=== PATIENT | female | born 1995 | race Caucasian/White ===

== ENCOUNTER 2017-08-17 18:13 | Emergency (ER) | payer BC ==
[~2017-08-17] VITALS: Ht 154.9 cm; Wt 45.4 kg
== END 2017-08-18 00:19 | disposition home or self-care (01) ==
LOC: ED 18:13
DX: F15.129 Other stimulant abuse with intoxication, unspecified (principal)
CPT/HCPCS: 80053; 80176; 81001; 84443; 84703; 85025; 87077; 87088; 87186; 99283; G0480

== ENCOUNTER 2017-08-18 16:39 | Emergency (ER) | payer BC ==
[~2017-08-18] VITALS: Ht 152.4 cm; Wt 45.4 kg
--- OUTSIDE RECORDS SUMMARY | ~2017-08-18 | XMS | Clinical Summary ---
Demographics + + + | Address | [address] | | | [place] [address] | + + + | Home Phone | | + + + | Preferred Language | Unknown | + + + | Marital Status | Single | + + + | Zoroastrianism Affiliation | Unknown | + + + | Race | Unknown | + + + | Ethnic Group | Unknown | + + + Author + + + | Author | [facility] | + + + | Organization | [facility] | + + + | Address | Unknown | + + + | Phone | Unavailable | + + + Support + + + + + | Name | Relationship | Address | Phone | + + + + + | Tami Naqvi | ECON | [address] | | | | | [place] | | | | | [address] | | + + + + + | Message,Detailed | ECON | [address] | | | | | [place] | | | | | [address] | | + + + + + Care Team Providers + +------+ + | Care Contact Officer Name | Role | Phone | + +------+ + | Isabelle Melchor | PP | | + +------+ + Allergies + + + + + + | Active Allergy | Reactions | Severity | Noted | Comments | | | | | Date | | + + + + + + | Anesthetics, Tierney | Shortness of Breath | High | 12/03/19 | | | | | | 13 | | + + + + + + Current Medications + + +--------+---------+------+------+-------+ | Prescription | Sig. | Disp. | Refills | Star | End | Statu | | | | | | t | Date | s | | | | | | Date | | | + + +--------+---------+------+------+-------+ | amoxicillin | Take 875 mg by mouth | | | 11/05 | | Activ | | (AMOXIL) 875 MG | 2 (two) times | | | 07/25 | | e | | tablet | daily. | | | 17 | | | + + +--------+---------+------+------+-------+ | ondansetron | Take 1 tablet by | | | 11/05 | | Activ | | (ZOFRAN) 4 MG tablet | mouth every 4 (four) | | | 3 | | e | | | hours as needed. | | | 17 | | | + + +--------+---------+------+------+-------+ | | Take 1 tablet by | 20 | 0 | 07/1 | | Activ | | amoxicillin-clavulan | mouth 2 (two) times | tablet | | 4/20 | | e | | ate (AUGMENTIN) | daily. | | | 17 | | | | 875-125 MG per | | | | | | | | tablet | | | | | | | + + +--------+---------+------+------+-------+ Active Problems No known active problems Family History + + +------+ + | Medical History | Relation | Name | Comments | + + +------+ + | Diabetes type II | Father | | | + + +------+ + | Heart disease | Father | | | + + +------+ + | Hypertension | Father | | | + + +------+ + | Cancer | Maternal | | ovarian cancer | | | Grandmoth | | | | | er | | | + + +------+ + | Diabetes type II | Paternal | | | | | Grandfath | | | | | er | | | + + +------+ + | Heart disease | Paternal | | | | | Grandfath | | | | | er | | | + + +------+ + | Diabetes type II | Paternal | | | | | Grandmoth | | | | | er | | | + + +------+ + + +------+--------+ + | Relation | Name | Status | Comments | + +------+--------+ + | Father | | Alive | | + +------+--------+ + | Maternal Grandfather | | Alive | | + +------+--------+ + | Maternal Grandmother | | Alive | | + +------+--------+ + | Mother | | Alive | | + +------+--------+ + | Paternal Grandfather | | Alive | | + +------+--------+ + | Paternal Grandmother | | Alive | | + +------+--------+ + Social History + +-------+ +--------+------+ | Tobacco Use | Types | Packs/Day | Years | Date | | | | | Used | | + +-------+ +--------+------+ | Current Every Day | | | | | | Smoker | | | | | + +-------+ +--------+------+ + +---+---+---+ | Smokeless Tobacco: | | | | | Never Used | | | | + +---+---+---+ + + | Tobacco Cessation: Counseling Given: Yes | | Comments: haven't smoked in four days | + + + + +---------+ + | Alcohol Use | Drinks/We | oz/Week | Comments | | | ek | | | + + +---------+ + | Yes | | | | + + +---------+ + + + + | Sex Assigned at | Date Recorded | | | | + + + | Not on file | | + + + Last Filed Vital Signs + + + + | Vital Sign | Reading | Time Taken | + + + + | Blood Pressure | 107/61 | 11/18/2016 7:20 PM PDT | + + + + | Pulse | 75 | 11/18/2016 7:20 PM PDT | + + + + | Temperature | 37 C (98.6 F) | 09/22/2016 7:59 PM PDT | + + + + | Respiratory Rate | 18 | 11/18/2016 7:20 PM PDT | + + + + | Oxygen Saturation | 100% | 11/18/2016 7:20 PM PDT | + + + + | Inhaled Oxygen | - | - | | Concentration | | | + + + + | Weight | 52 kg (114 lb 10.2 | 11/18/2016 4:41 PM PDT | | | oz) | | + + + + | Height | 165.1 cm (5' 5") | 11/18/2016 4:41 PM PDT | + + + + | Body Mass Index | 19.08 | 11/18/2016 4:41 PM PDT | + + + + Plan of Treatment + + + + + | Health Maintenance | Due Date | Last Done | Comments | + + + + + | Vaccine: HPV (1 of 3 | | | | | - Female 3 Dose | 5 | | | | Series) | | | | + + + + + | Vaccine: | | | | | Dtap/Tdap/Td (1 - | 3 | | | | Tdap) | | | | + + + + + | Vaccine: | | | | | Pneumococcal 19-64 | 3 | | | | (PPSV23 only) Medium | | | | | Risk (1 of 1 - | | | | | PPSV23) | | | | + + + + + | Cervical Cancer | | | | | Screening (Pap) | 5 | | | + + + + + | Vaccine: Influenza | | | | | (Season Ended) | 8 | | | + + + + + Results Not on filefrom Last 3 Months Insurance + +--------+ +------+-------+---------+ | Payer | Benefi | Subscriber | Type | Phone | Address | | | t Plan | ID | | | | | | / | | | | | | | Group | | | | | + +--------+ +------+-------+---------+ | [employer] - [place] | L&I - | [phone] | | | | | | [place] | | | | | | | [place] | | | | | + +--------+ +------+-------+---------+ | [employer]ET[employer] | [place]ETNA | [phone] | | | | | | - [place] | | | | | | | [place] | | | | | | | [place] | | | | | + +--------+ +------+-------+---------+ + +--------+ +--------+ + + | Guarantor Name | Accoun | Relation to | Date | Phone | Billing Address | | | t Type | Patient | of | | | | | | | | | | + +--------+ +--------+ + + | BRITTANY NAQVI | Person | Self [birth year] | Home: | [address] | | | al/Fam | | 1994 | - | [place] | | | [place] | | | [address] | [address] | + +--------+ +--------+ + + | BRITTANY NAQVI | Worker | Self | [birth year] | Home: | [address] | | | s Comp | | 1994 | - | [place] | | | | | | [address] | [phone] | + +--------+ +--------+ + +
--- OUTSIDE RECORDS SUMMARY | ~2017-08-18 | XMS | Clinical Summary ---
Demographics + + + | Address | [address] | | | [place] [address] | + + + | Home Phone | | + + + | Preferred Language | Unknown | + + + | Marital Status | Single | + + + | Muslim Affiliation | Unknown | + + + | Race | Unknown | + + + | Ethnic Group | Unknown | + + + Author + + + | Author | [facility] | + + + | Organization | [facility] | + + + | Address | Unknown | + + + | Phone | Unavailable | + + + Support + + + + + | Name | Relationship | Address | Phone | + + + + + | Tami Naqvi | ECON | [address] | | | | | [place] | | | | | [address] | | + + + + + | Message,Detailed | ECON | [address] | | | | | [place] | | | | | [address] | | + + + + + Care Team Providers + +------+ + | Care Refueler Name | Role | Phone | + [...] | [place] | | | [address] | [phone] | + +--------+ +--------+ + + | BRITTANY NAQVI | Worker | Self | [birth year] | Home: | [address] | | | s Comp | | 1994 | - | [place] | | | | | | [address] | [phone] | + +--------+ +--------+ + +
== END 2017-08-18 18:20 | disposition home or self-care (01) ==
LOC: ED 16:39
DX: T18.2XXA Foreign body in stomach, initial encounter (principal); Z87.891 Personal history of nicotine dependence; Z88.4 Allergy status to anesthetic agent
CPT/HCPCS: 74018; 80053; 80176; 84443; 85025; 99283; G0480

== ENCOUNTER 2018-12-30 14:51 | Emergency (ER) | payer BC, OTHER ==
[~2018-12-30] VITALS: Ht 154.9 cm; Wt 64.0 kg
[~2018-12-30 14:51] MED LIST: BACTRIM DS TAB1 EACH PO; CHANTIX1 MG PO; ESCITALOPRAM OX10 MG PO; KEFLEX500 MG PO; LITHIUM CARBON450 MG PO; MINIPRESS2 MG PO; NALTREXONE HCL50 MG PO; OMEPRAZOLE20 MG PO; PROAIR HFA8.5 GM INH; QUETIAPINE FUM400 M1 PO; TRAZODONE HCL50 MG PO
--- OUTSIDE RECORDS SUMMARY | 2018-12-30 14:54 | XMS ---
PreManage Notification: BRITTANY NAQVI Security [employer] Events No recent Security Events currently on file CRITERIA MET - Group Notification - PDMP - [facility] - 2 Visits in 30 Days CARE PROVIDERS DIANNE BALL [facility] PHONE: Unknown [place] FRANCIS [facility] Current PHONE: Unknown DOCTOR HUGGINS [facility] Current PHONE: Unknown DIANNE SERNA [facility] PHONE: Unknown Katja has no Care Guidelines for this patient. Mark VISIT COUNT (12 MO.) 1 [facility] 1 [facility] 1 Pepe Aguilar 1 Damion Aguilar 2 [facility] [place] TOTAL 6 NOTE: Visits indicate total known visits. ED/UCC VISIT TRACKING (12 MO.) 12/30/2018 14:52 [facility] [place] TYPE: Emergency COMPLAINT: - STOMACH PROBLEM 12/12/2018 14:54 [facility] [place] TYPE: Emergency DIAGNOSES: - Trichomoniasis, unspecified - Flank Pain - Shortness of Breath /Hand Infection - Unspecified conjunctivitis - Hypokalemia - Hand Swelling - Other psychoactive substance abuse, uncomplicated - Eye Redness 11/24/2018 12:30 [facility] [place] TYPE: Emergency COMPLAINT: - SKIN ISSUES DIAGNOSES: - Other senior living (current) drug therapy - Allergy status to anesthetic agent status - Disorder of the skin and subcutaneous tissue, unspecified - Personal history of nicotine dependence - Cellulitis of right upper limb 09/18/2018 21:50 [facility] [place] TYPE: Emergency DIAGNOSES: - abcess - Cellulitis of right upper limb 02/01/2018 20:32 [facility] [place] TYPE: Emergency DIAGNOSES: - Allergy, unspecified, initial encounter - allergic reaction 01/23/2018 13:02 [facility] [place] TYPE: Emergency DIAGNOSES: - head laceration - Head Injury (With Loc) - Concussion without loss of consciousness, initial encounter - Acute cystitis without hematuria - Strain of muscle, fascia and tendon at neck level, initial encounter - Laceration INPATIENT VISIT TRACKING (12 MO.) No inpatient visits to display in this time frame [id number]
== END 2018-12-30 18:35 | disposition home or self-care (01) ==
LOC: ED 14:51
DX: N39.0 Urinary tract infection, site not specified (principal); E87.6 Hypokalemia; F15.10 Other stimulant abuse, uncomplicated; F17.200 Nicotine dependence, unspecified, uncomplicated; Z88.7 Allergy status to serum and vaccine; Z79.899 Other long term (current) drug therapy
CPT/HCPCS: 80053; 80176; 81001; 83690; 84443; 84703; 85025; 87491; 87591; 96372; 99284; 99406; G0480; J0696